=== PATIENT | female | born 1950 | race Caucasian/White ===

== ENCOUNTER → 2023-05-25 08:52 | Outpatient (REF) | payer OTHER, SELFPAY | LOC: RAD 08:52 | PROVIDERS: ATTENDING PHYSICIAN Surgery Vascular Surgery | DX: I77.1 Stricture of artery (principal); I65.23 Occlusion and stenosis of bilateral carotid arteries | CPT/HCPCS: 93880; 93923; 93930 ==

== ENCOUNTER → 2023-08-17 11:06 | Outpatient (REF) | payer OTHER, SELFPAY | LOC: WDC 11:06 | PROVIDERS: ATTENDING PHYSICIAN Family Medicine | DX: Z12.31 Encounter for screening mammogram for malignant neoplasm of breast (principal) | CPT/HCPCS: 77063; 77067 ==

== ENCOUNTER → 2024-05-30 12:27 | Outpatient (REF) | payer OTHER, SELFPAY | LOC: RAD 12:27 | PROVIDERS: ATTENDING PHYSICIAN Internal Medicine; FAMILY PHYSICIAN Family Medicine | DX: R10.84 Generalized abdominal pain (principal) | CPT/HCPCS: 74019 ==

== ENCOUNTER → 2024-06-13 08:55 | Outpatient (REF) | payer OTHER, SELFPAY | LOC: DHVS 08:55 | PROVIDERS: ATTENDING PHYSICIAN Registered Nurse; FAMILY PHYSICIAN Family Medicine | DX: I65.23 Occlusion and stenosis of bilateral carotid arteries (principal); I77.1 Stricture of artery | CPT/HCPCS: 93880; 93923; 93930 ==

== ENCOUNTER → 2024-08-21 08:57 | Outpatient (REF) | payer OTHER, SELFPAY | LOC: WDC 08:57 | PROVIDERS: ATTENDING PHYSICIAN Family Medicine | DX: Z12.31 Encounter for screening mammogram for malignant neoplasm of breast (principal) | CPT/HCPCS: 77063; 77067 ==

== ENCOUNTER 2024-10-08 21:27 | Emergency (ER) | payer OTHER, SELFPAY ==
[2024-10-08 21:33] VITALS: BP 146/70
[2024-10-08 22:10] VITALS: BMI 25.2
[2024-10-08 22:11] VITALS: BP 158/65
[2024-10-08] MEDS: ZOFRAN ODT (ORALLY DISINTEGRATING) 4 MG PO (22:54)
[2024-10-08] MEDS: ULTRAM 75 MG PO (22:55)
[2024-10-08] MEDS: FLEET PHOSPHATE ENEMA-ADULT 135 ML RECTAL (23:00)
--- NOTE | 2024-10-08 23:28 | ED.GENMED ---
History of Present Illness
General
Chief Complaint: Bowel Problem
Source: patient
Exam Limitations: none
Nursing documentation reviewed up to this point in time: agreed with
History of Present Illness
History of Present Illness:
The patient is a 74-year-old female who reports severe rectal pain and hard stool that is stuck. Patient reports this started at around 5 PM today and has been constant. Patient reports she tried an enema but it just fell out. Patient reports
that she had been taking Imodium recently, as recommended by her GI doctor for her colitis. She suspects this is what is now causing her to have hard stool. She denies vomiting but reports mild nausea
Past History
Past History
ED Past Medical History: HTN, Hypercholesterolemia and Other (Colitis)
ED Past Surgical History: Other
Social History
Tobacco: Other
Alcohol: Other
Drug: None
Personal: Other
Living: other
Employment: Other
Family History
Family History: Unable to obtain
Review of Systems
Review of Systems
Allergies reviewed?: Yes
All Other Systems: ROS reviewed and negative except as documented in HPI and ROS
Constitutional: Reports no symptoms
EENT: Reports no symptoms
Respiratory: Reports no symptoms
Cardiac: Reports no symptoms
ABD/GI: Reports nausea and other (Rectal pain and pressure)
: Reports no symptoms
Musculoskeletal: Reports no symptoms
Skin: Reports no symptoms
Neurological: Reports no symptoms
Endocrine: Reports no symptoms
Hematologic/Lymphatic: Reports no symptoms
Psychiatric: Reports no symptoms
Phy Exam
Physical Exam
Physical Exam:
Physical Exam
General: Patient anxious but nontoxic
Neck: supple.
Heart: s1/s2 regular rate and rhythm, no murmur. equal radial pulses.
Lungs: no acute respiratory distress. clear bilaterally
Abdomen: normal bowel sounds. not tender. Nondistended and soft throughout. On rectal exam, I do not see any hemorrhoids. Patient has hard stool in the anus
Neuro: alert and oriented. no focal neurological deficits
Skin: no rash
Psychiatric: well kept. interactive and cooperative
Extremities: no edema.
Course
Orders/Labs/Results
Orders:
Orders
10/08/24 22:42
Tramadol HCl [Ultram] 75 mg PO NOW STA
10/08/24 22:43
Ondansetron Orally Disint [Zofran Odt (Orally Disintegrating)] 4 mg PO NOW STA
Phosphate Enema [Fleet Phosphate Enema-Adult] 135 ml RECTAL NOW STA
Vital Signs
Initial and Last Documented VS:
Initial Vital Signs
Temp Pulse Resp BP Pulse Ox
97.7 F 100 20 146/70 98
10/08/24 21:33 10/08/24 21:33 10/08/24 21:33 10/08/24 21:33 10/08/24 21:33
Last Documented Vital Signs
Temp Pulse Resp BP Pulse Ox
98.5 F 96 20 158/65 98
10/08/24 22:11 10/08/24 22:11 10/08/24 22:11 10/08/24 22:11 10/08/24 23:29
MDM/Problems Addressed
Differential Diagnosis Includes:
Stool impaction in rectum, acute constipation, perirectal abscess
MDM/Problems Addressed:
Patient complains of acute rectal pain and pressure
Chronic conditions affecting care: HTN
Acute Exacerbation and/or Progression of Chronic Illness:
Patient is acutely hypertensive, however, I suspect this is due to anxiety and pain. When we rechecked her blood pressure, it did come down slightly
Acute Exacerbation and/or Progression of Chronic Illness: HTN
*Pulse Oximetry
SaO2: 98
Oxygen Mode of Delivery: Room air
Patient hypoxic: no
Comment: Not hypoxic. 98% on room air
*EKG
Interpreted by ED Provider?: NA
*Fagoting Machine Operator Interpretation
Rate: Fagoting Machine Operator- N/A
*Critical Care Note
Total Time (30-74mins, 75-104mins- exclusive of procedures): Not Applicable
Data Reviewed
Review of Other/Old Records Reveals: Radiology Studies (Obstruction series reviewed from May 2024 which showed that patient had mild fecal retention and constipation)
Source: patient
Update Note
Update Note:
11:30 PM patient has been disimpacted twice by me with removal of some hard balls of stool. Disimpaction has been somewhat limited due to patient anxiety and pain. Patient also given Fleet enema
ED Attending Note
-
Portions of this chart may have been created with voice recognition software.� Occasional wrong word or��sound alike� substitutions may have occurred due to the inherent limitations of voice recognition software.
Discharge Plan
Departure
Patient Disposition: Home (Routine Discharge)
Date of Disposition: 10/08/24
Time of Disposition: 23:36
Patient with high blood pressure during this ER visit?: Yes
Condition: Good
Covid-19: Not Applicable
Discharge Problem:
Fecal impaction of rectum
Instructions: Fecal Impaction (DC), BLOOD PRESSURE
Referrals:
Dontrell Hudson MD [Family Provider, Family Practice]
Activity Restrictions/Additional Instructions:
Please stop taking Imodium and speak to your GI doctor soon as possible.
Interventions
Interventions:
*Risk Screen - Suicide Last Done: 10/08/24 21:33
*General Assessment Last Done: 10/08/24 21:33
*Neglect/Abuse Screening Last Done: 10/08/24 21:33
*ED COVID-19 Vaccine History Last Done: 10/08/24 21:33
PR-[id number]-[id number] Assessment Last Done: 10/08/24 22:13
Discharge Date and Time
Print Language: NEPALI
== END 2024-10-08 23:52 | disposition home or self-care (01) ==
LOC: EMR 21:27
PROVIDERS: EMERGENCY PHYSICIAN Emergency Medicine; FAMILY PHYSICIAN Family Medicine
DX: K56.41 Fecal impaction (principal); I10 Essential (primary) hypertension; E78.00 Pure hypercholesterolemia, unspecified
CPT/HCPCS: 99283

== ENCOUNTER 2024-12-16 06:28 | Day surgery (SDC) | payer OTHER, SELFPAY | END 2024-12-16 14:38 | disposition home or self-care (01) | LOC: GI 06:28 | PROVIDERS: ATTENDING PHYSICIAN Internal Medicine | DX: Z12.11 Encounter for screening for malignant neoplasm of colon (principal); K64.9 Unspecified hemorrhoids; K57.30 Diverticulosis of large intestine without perforation or abscess without bleeding; K63.89 Other specified diseases of intestine | CPT/HCPCS: 45380; 88305 ==